=== PATIENT | male | born 1970 ===

== ENCOUNTER 2016-10-16 04:20 | Observation (INO) ==
[2016-10-16] MEDS ORDERED: KETOROLAC 30 MG/1 ML VIAL IV STA (04:43)
[2016-10-16] MEDS ORDERED: KETOROLAC 30 MG/1 ML VIAL ONE (04:47)
[2016-10-16 04:51] LABS: Basophils # 0.1 10*3/uL (0.0-0.2); Basophils % 0.4 % (0.0-0.8); Eosinophils # 0.1 10*3/uL (0.0-0.87); Eosinophils % 0.7 % (0.00-10.9); Hematocrit 41.4 VOL% (42.0-52.0); Hemoglobin 14.8 GM/DL (14.0-18.0); Immature Granulocytes % 0.4 %; Immature Granulocytes Absolute 0.07 #; Lymphocytes # 1.8 10*3/uL (1.4-4.0); Lymphocytes % 9.9 % (21.2-54.2); Mean Corpuscular HGB Conc 35.7 GM/DL (32-36); Mean Corpuscular Hemoglobin 30 PG (27-34); Mean Corpuscular Volume 84.3 FL (87-102); Mean Platelet Volume 10.3 FL (9.6-12.0); Monocytes # 1.2 10*3/uL (0.11-0.8); Monocytes % 6.3 % (1.7-12.7); Neutrophils # 15.1 10*3/uL (1.4-7.4); Neutrophils % 82.3 % (38.7-73.9); Platelet Count 330 T/CUMM (130-400); Red Blood Count 4.91 MC/CUMM (3.8-5.5); Red Cell Distribution Width 11.9 % (9.3-17.3); White Blood Count 18.3 T/CUMM (4-12)
--- NOTE | 2016-10-16 05:18 | Emergency Department Note ---
IMc Mantricia, am scribing for, and in the presence of, Tasha Forte DO 04:46. IJann Debra, DO, personally performed the services described in this documentation, ascribed by Mariama Bentley in my presence, and it is both accurate and complete 518 . Arrival <Juan Bellamy - Last Filed: 10/16/16 13:27> - Arrival ED Nursing Triage Note: C/C RUQ pain that radiates into flank and back. Off/On for a week. Mode of Arrival: Ambulatory Limitations: No Limitations Source: Patient - History of Present Illness Onset (ago): week(s) <Tasha Forte - Last Filed: 10/23/16 15:36> - Arrival Chief Complaint: Abdominal / Flank Pain Stated Complaint: upper right stomach pains - History of Present Illness HPI Narrative: Pt is a 45 y/o white male arriving to ED with c/o right sided abdominal pain that has been constant for months. He states that the pain has been waxed and waned every 6 months. He reports that he went to the ED in [place] and a CT and X- ray was performed, but they were normal. He states that he was not able to sleep tonight and denies N/V/D,a fever, and chillls. Pt reports that his meal was baked fish at 1930 yesterday. No other complaints were reported to ED. ( Mariama Bentley) Pt is a 45 y/o white male arriving to ED with c/o right sided abdominal pain that has been constant for months. He states that the pain has been waxed and waned every 6 months. He reports that he went to the ED in [place] and a CT and X- ray was performed, but they were normal. He states that he was not able to sleep tonight and denies N/V/D,a fever, and chillls. Pt reports that his meal was baked fish at 1930 yesterday. No other complaints were reported to ED. ( Tasha Forte) Allergies/Adverse Reactions: Allergies Allergy/AdvReac Type Severity Reaction Status Date / Time No Known Allergies Allergy Unverified 10/16/16 04:30 Home Medications: Home Medications Medication Instructions Recorded Confirmed Type HYDROcodone/ACETAMIN 7.5-325 1 tablet PO Q4H PRN #30 tablet 10/17/16 Rx [[place] 7.5-325] Review of System - Review of System 12 point system: reviewed and no additional remarkable complaints except as stated - Review of System Constitutional: Absent: chills, diaphoresis, fever Eyes: Absent: discharge, pain Head/Ears/Nose/Throat: Absent: earache, epistaxis Respiratory: Absent: cough, respiratory distress, wheezing Cardiovascular: Absent: chest pain, palpitations Gastrointestinal: Present: abdominal pain (right sided). Absent: nausea, vomiting, diarrhea Genitourinary male: Absent: urgency, dysuria Musculoskeletal: Absent: arm pain, back pain, leg pain, neck pain Skin: Absent: rash, lesions <Tasha Forte - Last Filed: 10/23/16 15:36> Medical,Surgical,& Family Hx - Social History Smoking Status: Never smoker Frequency of Alcohol Use: Occasionally Type of Drug Use: None <Tasha Forte - Last Filed: 10/23/16 15:36> Exam - General General appearance: alert, in no apparent distress - Head Head exam: Present: atraumatic, normocephalic, normal inspection - Eye Eye exam: Present: normal appearance, PERRL, EOMI - ENT ENT exam: Present: normal exam, normal oropharynx, mucous membranes moist, TM's normal bilaterally, normal external ear exam - Neck Neck exam: Present: normal inspection, full ROM, trachea midline. Absent: tenderness - Chest Chest inspection: Present: normal inspection, symmetric chest wall rise. Absent : tenderness - Respiratory Respiratory exam: Present: normal lung sounds bilaterally - Cardiovascular Cardiovascular exam: Present: regular rate, normal rhythm, normal heart sounds - Abdominal Exam Abdominal exam: Present: soft, tenderness (right sided), normal bowel sounds. Absent: distention, guarding, rebound - Extremities Exam Extremities exam: Present: normal inspection, full ROM, normal capillary refill. Absent: tenderness, pedal edema - Back Exam Back exam: Present: normal inspection, full ROM. Absent: tenderness - Neurological Exam Neurological exam: Present: alert, oriented X3, CN II-XII intact, normal gait, reflexes normal - Psychiatric Psychiatric exam: Present: normal affect, normal mood - Skin Skin exam: Present: warm, dry, intact, normal color <Tasha Forte - Last Filed: 10/23/16 15:36> Vital Signs: Vital Signs Temperature 98.2 F 10/17/16 11:49 Pulse Rate 83 10/17/16 11:49 Respiratory Rate 18 10/17/16 11:49 Blood Pressure 121/78 10/17/16 11:49 O2 Sat by Pulse Oximetry 100 10/17/16 11:49 Course <Juan Bellamy - Last Filed: 10/16/16 13:27> <Tasha Forte - Last Filed: 10/23/16 15:36> Course Narrative: Discussed with Dr. Abarca. Pt will be admitted to his service. (Juan Bellamy) Results - Labs CBC & BMP: 10/16/16 04:36 10/16/16 04:36 - Diagnostic Findings Procedure: CT Abdomen and Pelvis: image reviewed by me, report reviewed by me, Ultrasound: report reviewed by me (Gallbladder ultrasound: No evidence of cholelithiasis or cholecystitis.) <uJan Bellamy - Last Filed: 10/16/16 13:27> - Labs CBC & BMP: 10/17/16 12:01 10/16/16 04:36 Lab Results: I have reviewed the patients labs <Tasha Forte - Last Filed: 10/23/16 15:36> - Labs Labs: Laboratory Tests 10/16/16 10/16/16 10/16/16 04:36 04:36 04:36 Hct 41.4 L MCV 84.3 L Neut % (Auto) 82.3 H Lymph % (Auto) 9.9 L Neut # (Auto) 15.1 H [place] # (Auto) 1.2 H Anion Gap 15.1 H Urine Urobilinogen < 2.0 H (Mariama Bentley) HIDA scan: No uptake in gallbladder (Juan Bellamy) Laboratory Tests 10/16/16 10/16/16 10/16/16 04:36 04:36 04:36 Hct 41.4 L MCV 84.3 L Neut % (Auto) 82.3 H Lymph % (Auto) 9.9 L Neut # (Auto) 15.1 H [place] # (Auto) 1.2 H Anion Gap 15.1 H Urine Urobilinogen < 2.0 H (Tasha Forte) Disposition Case discussed with: patient Time of Disposition: 13:29 <Juan Bellamy - Last Filed: 10/16/16 13:27> <Tasha Forte - Last Filed: 10/23/16 15:36> Clinical Impression: Acute cholecystitis Disposition: Still a Patient Condition: Stable New Prescriptions: Rx's Medication Instructions Recorded HYDROcodone/ACETAMIN 7.5-325 1 tablet PO Q4H PRN #30 tablet 10/17/16 [[place] 7.5-325]
[2016-10-16 05:27] LABS: Apearance,Urine CLEAR (Clear); Bilirubin,Urine Negative (Negative); Blood, Urine Negative (Negative); Glucose,Urine (UA) Negative (Negative); Ketones,Urine 5 mg/dL (Negative); Mucus,Urine Few /LPF (Occasional); Nitrite,Urine Negative (Negative); Protein,Urine Negative; RBC,Urine 1 /HPF (0-4); Squamous Epithelial Cell,Urine Occasional /HPF (0-10); Urine Color Yellow (Yellow); Urine Specific Gravity 1.024 (1.001-1.035); Urine Urobilinogen < 2.0 EU/DL (0.2-1.0); WBC,Urine 1 /HPF (0-6)
[2016-10-16 05:37] LABS: Albumin 4.3 G/DL (3.4-5.0); Bilirubin,Total 0.4 MG/DL (0.2-1.0); Calcium 8.6 MG/DL (8.5-10.1); Osmolality,Calculated 277.5 MOS/KG (273-304); Potassium 4.1 MMOL/L (3.5-5.1); Total Protein 7.6 G/DL (6.4-8.3)
[2016-10-16] MEDS ORDERED: ONDANSETRON 4 MG/2 ML VIAL IV STA (05:49)
[2016-10-16] MEDS ORDERED: SODIUM CHLORIDE 0.9% 1,000 ML IV STA (05:49)
[2016-10-16] MEDS ORDERED: HYDROmorphone 2 MG/1 ML VIAL IV STA (05:49)
[2016-10-16] MEDS ORDERED: ONDANSETRON 4 MG/2 ML VIAL ONE (05:49)
[2016-10-16] MEDS ORDERED: HYDROmorphone 2 MG/1 ML VIAL ONE (05:50)
--- NOTE | 2016-10-16 07:01 | CT Report ---
CT abdomen pelvis w con Indication: Abdominal pain, right quadrant Comparison: None Technique: Multiple axial tomographic images of the abdomen and pelvis were obtained after the administration of 100 cc Omnipaque 350 intravenous contrast. Findings: Mild dependent change of the lungs present. No worrisome focal hepatic abnormality. Question mild gallbladder wall thickening. Gallbladder is nondistended. The pancreas is grossly unremarkable. The spleen is grossly unremarkable. The bilateral adrenal glands are grossly unremarkable. Subcentimeter hypodensity demonstrated within the left kidney which is too small to characterize but may reflect a cyst. The bilateral kidneys are otherwise grossly unremarkable. The urinary bladder is incompletely distended. The prostate and seminal vesicles are grossly unremarkable. There is no evidence of gastrointestinal obstruction or acute appendicitis. Question wall thickening of the terminal ileum. Visualized vasculature grossly unremarkable. Visualized osseous and surrounding soft tissue structures demonstrate no acute abnormality. Scattered degenerative change of the spine. IMPRESSION: Question mild gallbladder wall thickening. There is no significant gallbladder distention. Consider further evaluation with ultrasound and/or nuclear medicine hepatobiliary imaging study. Question wall thickening of the terminal ileum. This can be seen with infectious/inflammatory process such as Crohn's disease. The CT exam was performed using one or more of the following dose reduction techniques: Automated exposure control, adjustment of the mA and/or kV according to patient size, or use of iterative reconstruction technique. PROCEDURE INTERPRETED AT [facility] DEPARTMENT OF RADIOLOGY Final Report Signed by: Dr Gilbert Cuellar
--- NOTE | 2016-10-16 07:31 | Ultrasound Report ---
US gallbladder Indication: Right upper quadrant abdominal pain. Comparison: None. Technique: Multiple longitudinal and transverse real-time sonographic images of the right upper quadrant of the abdomen are obtained. Findings: The liver measures 17.2 cm and demonstrates increased echogenicity without focal abnormality on submitted images. Gallbladder wall thickening is demonstrated. There is no evidence of cholelithiasis or gallbladder distention. The common duct measures 0.4 cm in diameter and there is no evidence of significant intrahepatic ductal dilation. Right kidney measures 9.4 cm. Pancreas obscured. IVC obscured. IMPRESSION: Gallbladder wall thickening is demonstrated. There is no evidence of cholelithiasis or gallbladder distention. Consider nuclear medicine hepatobiliary imaging study for further evaluation. Hepatic steatosis. PROCEDURE INTERPRETED AT [facility] DEPARTMENT OF RADIOLOGY Final Report Signed by: Dr Gilbert Cuellar
--- NOTE | 2016-10-16 13:30 | Nuclear Medicine Report ---
NM hepatobiliary Indication: Right upper quadrant pain Comparison: Gallbladder ultrasound dated October 16, 2016 Radiopharmaceutical: 5 mCi technetium 99m Choletec IV. Technique: Anterior dynamic images were acquired over the upper abdomen for a period of 2 hours following intravenous administration of the radiopharmaceutical. Findings: Review of the images demonstrate prompt clearance of the radiopharmaceutical from the blood pool into the liver parenchyma. There is prompt progression of the isotope from the liver into the intrahepatic biliary and common duct. Radiotracer is noted in the small bowel at the end of 60 minutes.There is no radiotracer activity within the gallbladder at the end of 2 hours. IMPRESSION: There is no radiotracer activity within the gallbladder at the end of 2 hours. This is suspicious for cholecystitis. PROCEDURE INTERPRETED AT [facility] DEPARTMENT OF RADIOLOGY Final Report Signed by: Dr Gilbert Cuellar
--- NOTE | 2016-10-16 14:39 | General Surg History&Physical ---
Assessment and Plan (1) Acute acalculous cholecystitis Status: Acute Assessment and plan: The indications for proceeding with lap scopic cholecystectomy reviewed with the patient as well as the associated risks. Risks reviewed were including but not limited to infection, bleeding, blood vessel injury, nerve injury, adjacent organ injury, possibility to transition to open procedure, the need for additional procedures in the future, incomplete relief of associated chronic symptoms, pneumonia, heart attack, reactions to medications, hemothorax, pneumothorax, and other unforeseeable cardiac, pulmonary and/or neurologic events including the rare event of . The patient and his were present expressed understanding of these risks and agree to proceed with surgical intervention. Current Visit: Yes History of Present Illness Chief complaint: RUQ pain History of present illness: Mr. Garcia is a 45 year old male with no concerning past medical history reports he has had progressive right upper quadrant pain over the past 6 months which has increased drastically in the past 1 week. He reports associated nausea without vomiting or diarrhea. The pain is primarily nocturnal lasting for a few hours, with his most recent attack lasting approximately 12 hours. He had previous evaluation approximately 2 months ago at an outside emergency room department where no findings for discomfort. Patient denies chest pain, palpitations, shortness of breath, wheeze, cough, orthopnea, epigastric or back pain. Home Medications Medication Instructions Recorded Confirmed Type No Known Home Medications [No 10/16/16 10/16/16 History Known Home Medications] Allergies Allergy/AdvReac Type Severity Reaction Status Date / Time No Known Allergies Allergy Unverified 10/16/16 04:30 Medical,Surgical,& Family Hx - Medical History Medical History: noncontributory - Surgical History HEENT Surgeries: Surgical HX of: Tonsilectomy & Adenoidectomy Abdominal Surgeries: Surgical HX of: Appendectomy - Family History Family History: noncontributory - Social History Smoking Status: Never smoker Frequency of Alcohol Use: Occasionally Type of Drug Use: None 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 Absent: distended, firm, guarding - Extremities Exam Extremities exam: Absent: calf tenderness, edema - Neurological Exam Neurological exam: Present: alert, oriented X3 - Skin Skin exam: Present: normal color, warm - Constitutional Constitutional: Present: chills, weight gain, weight loss. Absent: fever(s) - Cardiovascular Cardiovascular: Present: as per HPI - Respiratory Respiratory: Present: as per HPI - Gastrointestinal Gastrointestinal: Present: as per HPI - Genitourinary Genitourinary: Absent: dysuria, hematuria - Musculoskeletal Musculoskeletal: Absent: arthralgias Hematologic/Lymphatic: Absent: easy bleeding, easy bruising Quality Measures - VTE Contraindication to Pharmacological VTE Prophylaxis: High Risk of Bleeding Results - Labs CBC & BMP: 10/16/16 04:36 10/16/16 04:36 Labs: HIDA: no radiotracer activity in GB after 2 hrs LFTs unremarkable UA unremarkable. - Diagnostic Findings Procedure: CT Abdomen and Pelvis: image reviewed by me, report reviewed by me, Ultrasound: image reviewed by me, report reviewed by me (gallbladder)
[2016-10-16] MEDS ORDERED: TISSUE ADHESIVE 1 EACH APPLICATOR TOP ONE (14:45)
[2016-10-16] MEDS ORDERED: BUPIVACAINE MPF 0.25% /EPI 30 ML VIAL ONE (14:45)
[2016-10-16] MEDS ORDERED: fentaNYL 100 MCG/2 ML VIAL ONE (17:13)
[2016-10-16] MEDS ORDERED: SEVOFLURANE 1 UNIT/15 MINUTE INH ONE (17:13)
[2016-10-16] MEDS ORDERED: MIDAZOLAM 2 MG/2 ML VIAL ONE (17:13)
--- NOTE | 2016-10-16 17:15 | Operative Note ---
Date of procedure: 10/16/16 Pre-op diagnosis: Acute cholecystitis Post-op diagnosis: same Procedure: Procedure performed: #1 laparoscopic cholecystectomy with intraoperative cholangiogram #2 supervision and interpretation fluoroscopy Procedure in detail: After informed consent was obtained, patient was taken operating suite placed upon the operating table. After general anesthesia induced abdomen was prepped and draped in usual sterile fashion. After procedural pause local anesthetic and strength skin subcutaneous tissue above the umbilicus. Incision made and dissection carried down through skin and soft tissue. The fascia grasped with Sarah's and elevated. Fascia incision was made and the abdominal cavity was entered bluntly. Finger sweep revealed no adhesions. Brandon trocar placed under direct visualization. Pneumoperitoneum achieved. The camera inserted bowel mesentery inspected found to be free of any violation. Next patient was placed in reverse Trendelenburg position rotated to the left. 2 5 mm trochars placed in the right upper quadrant 11 mm subxiphoid trocar was placed all under visualization. The gallbladder identified. It was acutely inflamed dilated and edematous. Cholecystotomy made and the contents suctioned. I was then able to grasp the gallbladder and retracted superiorly. Infundibulum the gallbladder retracted toward the right hip. Dissection was carried out from lateral to medial approach and the truncal low. The cystic duct and cystic artery were identified and isolated. Using a critical view technique these only 2 structures entering the gallbladder. Clip was placed in the junction of the cystic duct neck of the gallbladder and partial transection made on cystic duct. Cholangiocatheter inserted and secured in place. Intraoperative glandular and performed. Cystic duct common bile duct intra-and extrahepatic ducts were all normal with no filling defects. Contrast seen entering small bowel. The cholangiocatheter was removed and 2 clips placed on the cystic duct just distal to the partial transection the transection completed. Cystic artery was triple clipped and transected how long the gallbladder wall. Gallbladder was then removed from the gallbladder fossa using hook cautery and placed in the Endo Catch sac removed to the Brandon trocar site. Pneumoperitoneum reachieved. Right upper quadrant irrigated and suctioned. There is some mild oozing along the gallbladder fossa controlled with electrocautery. Clips inspected found to be intact no leakage of bilious or sanguinous fluid. Irrigant remained clear was all suctioned. There was good hemostasis. The trochars were removed as the abdomen desufflated. Fascia at the Brandon trocar site closed using 0 Vicryl [id number] interrupted suture. Wounds were thoroughly irrigated and suctioned. Deep dermal layer closed with 3-0 Vicryl. Incision closed with xochitl. Sterile dressings applied. Patient was extubated taken recovery room in stable condition. All lap and needle counts were correct at the end of the case. Anesthesia: GETA Surgeon / Physician: Mook Abarca Estimated blood loss: other (Less than 25 cc) Specimens: none sent Condition: stable Disposition: PACU Results - Labs CBC & BMP: 10/16/16 04:36 10/16/16 04:36 Discharge Plan - Discharge Medications No Action No Known Home Medications [No Known Home Medications] - Follow Up or Referral - Forms/Instructions
--- NOTE | 2016-10-16 17:43 | Fluoroscopy Report ---
FL cholangiogram in surgery Clinical Information: Intraoperative cholangiogram. Attending surgeon: Dr. Abarca. Total fluoroscopy time: 13 seconds. Comparison: None available Findings: Intraoperative cholangiogram demonstrates opacification of the common bile duct with no residual filling defects. Intrahepatic bile ducts appear unremarkable. Images were evaluated by the attending surgeon at the time of the procedure. Impression: Intraoperative fluoroscopy as detailed above. PROCEDURE INTERPRETED AT [facility] DEPARTMENT OF RADIOLOGY Final Report Signed by: Gavino Ibarra
[2016-10-16] MEDS ORDERED: ONDANSETRON 4 MG/2 ML VIAL IV PRN (17:57)
[2016-10-16] MEDS ORDERED: ACETAMINOPHEN 325 MG TABLET PO PRN (17:57)
[2016-10-16] MEDS ORDERED: MORPHINE 2 MG/1 ML SYRINGE IV PRN (17:57)
--- NOTE | 2016-10-16 18:45 | Anesthesia Post-Op ---
Anesthesia Post OP - Post Ansesthetic Evaluation Patient seen in post op: Yes Resp: within normal limits CV: within normal limits Mental: within normal limits Temp: within normal limits [id number]: within normal limits Nausea and Vomiting: within normal limits Pain: within normal limits
[2016-10-17] MEDS: LACTATED RINGERS 1,000 ML IV SCH ×2 (01:57→03:10)
[2016-10-17 06:03] LABS: Basophils % 0.3 % (0.0-0.8); Eosinophils # 0.1 10*3/uL (0.0-0.87); Eosinophils % 0.8 % (0.00-10.9); Hematocrit 35.6 VOL% (42.0-52.0); Immature Granulocytes % 0.4 %; Immature Granulocytes Absolute 0.04 #; Lymphocytes # 1.7 10*3/uL (1.4-4.0); Lymphocytes % 15.6 % (21.2-54.2); Mean Corpuscular HGB Conc 34.8 GM/DL (32-36); Mean Corpuscular Hemoglobin 30 PG (27-34); Mean Corpuscular Volume 85.8 FL (87-102); Mean Platelet Volume 10.5 FL (9.6-12.0); Monocytes # 1.3 10*3/uL (0.11-0.8); Monocytes % 12.1 % (1.7-12.7); Neutrophils # 7.8 10*3/uL (1.4-7.4); Neutrophils % 70.8 % (38.7-73.9); Platelet Count 284 T/CUMM (130-400); Red Blood Count 4.15 MC/CUMM (3.8-5.5); Red Cell Distribution Width 12.2 % (9.3-17.3)
[2016-10-17 06:10] LABS: Hemoglobin 12.4 GM/DL (14.0-18.0)
[2016-10-17] MEDS ORDERED: PANTOPRAZOLE 40 MG TABLET PO SCH (09:00)
[2016-10-17 11:50] VITALS: BP 121/78
[2016-10-17 12:18] LABS: Hematocrit 37.6 VOL% (42.0-52.0)
--- NOTE | 2016-10-17 12:35 | Discharge Summary ---
Hospital Course - Hospital Course Hospital Course: The pateint is 46 y/o male who underwent laparoscopic cholecystectomy with intraoperative cholangiogram for acute cholecystitis. P/o he reported clnical improvement in symptoms. He was discharged home in good condition with appropriate analgesics and f/u appt. Diagnosis - Discharge Diagnosis (1) Acute acalculous cholecystitis Status: Acute Specialty Discharge - Follow Up or Referrals Follow up with: Mook Abarca MD [Physician] - Discharge Plan - Discharge Data Disposition: Disch To Home/Self Care Condition at Discharge: Stable Discharge Diet: advance to your usual diet Activity: no lifting (> 10 lb) Hygiene: may shower (Do not soak or submerge wound) Driving: other (No driving while takin gnarcotics) Wound / Dressing Care Instructions: keep incisions clean and dry - Discharge Medications New HYDROcodone/ACETAMIN 7.5-325 [[place] 7.5-325] 1 tablet PO Q4H PRN #30 tablet PRN Reason: Pain Moderate To Severe (4-10) - Follow Up or Referral Follow Up: Leonid Dent III., MD [Physician] - (10/31 @ 2pm) - Forms/Instructions Instructions: Laparoscopic Cholecystectomy (DC) Exam - Constitutional Vitals: Period Temp Pulse Resp BP Sys/Reyes Pulse Ox Last 24 Hr 97.1 F-98.9 F 57-102 12-20 111-144/64-87 95-100 General appearance: no acute distress - Head Head exam: Present: normal inspection, normocephalic - Eye Eye exam: Absent: conjunctival injection, scleral icterus - Respiratory Respiratory exam: Present: clear to auscultation bilaterally - Cardiovascular Cardiovascular exam: Present: regular rate and rhythm - GI/Abdominal GI/Abdominal exam: Present: normal bowel sounds, soft, other (Dressing c/d/i. Appropriate p/o tenderness. ) - Extremities Exam Extremities exam: Absent: calf tenderness, edema - Neurological Exam Neurological exam: Present: alert, oriented X3 - Psychiatric Psychiatric exam: Present: normal affect, normal mood - Skin Skin exam: Present: normal color, warm Discharge Results Procedures and tests throughout hospitalization: 1. Laparoscopic cholecystectomh 2. Intraoperative cholecystectomy 3. Gallbladder pathology pending 4.HIDA - no fill in gallbladder after 2hrs - indicating acute cholecystitis Labs on day of discharge: Labs from last 24 hours 10/17/16 10/17/16 12:01 05:21 WBC 11.0 D RBC 4.15 Hgb 13.0 L 12.4 L D Hct 37.6 L 35.6 L MCV 85.8 L MCH 30 MCHC 34.8 RDW 12.2 Plt Count 284 MPV 10.5 Neut % (Auto) 70.8 Lymph % (Auto) 15.6 L [place] % (Auto) 12.1 Eos % (Auto) 0.8 Baso % (Auto) 0.3 Neut # (Auto) 7.8 H Lymph # (Auto) 1.7 [place] # (Auto) 1.3 H Eos # (Auto) 0.1 Baso # (Auto) 0.0 Immature Gran % 0.4 Nucleated RBC % 0.0 Immature Gran # 0.04 Nucleated RBCs # 0.00 - Imaging and Cardiology Procedure: CT Abdomen and Pelvis: image reviewed by me, report reviewed by me, Ultrasound: image reviewed by me, report reviewed by me DS: Provider Date of admission: 10/16/16 14:21 Primary care physician: . No PCP Attending physician on admission: Mook Abarca MD Consults: None Discharging clinician: Milly Whitlock PA-C
[2016-10-17] MEDS ORDERED: ROCURONIUM 100 MG/10 ML VIAL IV ONE (15:45)
[2016-10-17] MEDS ORDERED: ONDANSETRON 4 MG/2 ML VIAL ONE (15:45)
[2016-10-17] MEDS ORDERED: PROPOFOL 200 MG/20 ML VIAL IV ONE (15:45)
[2016-10-17] MEDS ORDERED: LIDOCAINE 1% 5 ML VIAL ONE (15:45)
--- NOTE | 2016-10-18 11:19 | Pathology Report from [facility] ---
[facility] ACCESSION # : [id number] PATIENT NAME : Arianne Becerra ORDERING DR : Mook Abarca MD CLINICAL HX: Acute cholecystitis POST-OP DX: Same SPECIMEN INFO: Gallbladder GROSS DESCRIPTION: Received in formalin labeled ARIANNE BECERRA is a focally opened gallbladder measuring 9.1 x 3.2 cm. The serosa is erythematous and fatty trevino. The gallbladder wall has a thickness of up to 0.6 cm. The mucosa is hemorrhagic and ulcerated with adherent thick hemorrhagic granular material present. No stones are identified. Job Recruiter sections are submitted in one cassette. DIAGNOSIS FOR ARIANNE BECERRA: GALLBLADDER, CHOLECYSTECTOMY: Acute and chronic necrotizing cholecystitis. Cholelithiasis. Unremarkable cystic duct lymph node. COLLECTED DATE: 10/17/2016 [facility] REPORT DATE: 10/18/2016 ELECTRONICALLY SIGNED BY: Nnamdi Whiting M.D. 10/18/2016 - 9:30:41 MTDD
== END 2016-10-17 15:35 | disposition home or self-care (01) ==
LOC: N.ED 04:20 → N.EDINP 04:20 → N.3E 15:12
PROVIDERS: ADMIT Surgery; ATTEND Surgery
PROC: LAPCHOL (2016-10-16 15:45)